=== PATIENT | female | born 1965 | race Caucasian/White ===

== ENCOUNTER → 2023-10-17 | Outpatient (CLI) | payer BC ==
[2023-10-17 18:16] LABS: Basophils # (A) 0.06 X 10*3/uL (0.00-0.10); Basophils % (A) 0.8 %; Eosinophils % (A) 5.2 %; HCT 42.6 % (37.2-46.3); HGB 13.9 g/dL (12.0-15.0); Lymphocytes # (A) 1.87 X 10*3/uL (0.90-5.00); Lymphocytes % (A) 24.2 %; MCH 28.1 pg (27.0-32.0); MCHC 32.6 g/dL (32.0-37.0); MCV 86.2 FL (80.0-97.0); Mean Platelet Volume 10.7 FL (9.5-12.2); Monocytes # (A) 0.61 X 10*3/uL (0.20-1.00); Monocytes % (A) 7.9 %; NRBC Per 100 WBC 0 X 10*3/uL (0.00-0.01); Neutrophils # (A) 4.75 X 10*3/uL (1.80-7.70); Neutrophils % (A) 61.3 %; Platelet Count 346 X 10*3/uL (140-440); RBC 4.94 X 10*6/uL (4.10-5.20); RDW 13.3 % (11.5-14.5); WBC 7.74 X 10*3/uL (4.50-10.00)
== END | disposition home or self-care (01) ==
LOC: LABPAT 15:16
PROVIDERS: ATTEND Obstetrics & Gynecology
DX: Z01.812 Encounter for preprocedural laboratory examination (principal)
CPT/HCPCS: 36415; 85025

== ENCOUNTER 2023-11-12 06:08 | Day surgery (SDC) | payer BC ==
[2023-11-07 15:44] VITALS: BMI 25.9
[~2023-11-12 06:08] MED LIST: Pre Op ABX Message 1 EACH MISC MISCELLANE ONE; SCOPOLAMINE 1 MG/72 HR PATCH TRANSDERM ONE; droPERidol 5 MG/2 ML VIAL IVP ONE
[2023-11-12] MEDS: LACTATED RINGERS 1,000 ML IV SCH (06:32)
[2023-11-12] MEDS: LIDOCAINE 1% (10MG/ML) FOR IV START INTRADERMA PRN (06:40)
[2023-11-12] MEDS: DEXAMETHASONE SOD PHOSPHATE 4 MG/ML 1 ML VIAL IV ONE (06:40)
[2023-11-12] MEDS: ONDANSETRON 4 MG/2 ML VIAL IVP ONE (06:40)
[2023-11-12] MEDS ORDERED: HYDROmorphone 0.5 MG/0.5 ML SYRINGE IVP PRN (07:00)
[2023-11-12] MEDS: LIDOCAINE 1%-EPI 1:100,000 50 ML VIAL SQ ONE (07:15)
[2023-11-12] MEDS ORDERED: KETOROLAC 15 MG/ML 1 ML VIAL ONE (07:41)
[2023-11-12] MEDS ORDERED: MIDAZOLAM 2 MG/2 ML VIAL ONE (07:41)
[2023-11-12] MEDS ORDERED: PROPOFOL 10 MG/ML 20 ML VIAL IV ONE (07:41)
[2023-11-12] MEDS ORDERED: fentaNYL (PF) 50 MCG/ML 2 ML AMP ONE (07:41)
[2023-11-12] MEDS ORDERED: LIDOCAINE 1% INJ 10MG/ML (20 ML MDV) ONE (07:41)
--- NOTE | 2023-11-12 08:18 | P.OP ---
Date of Procedure: 11/12/23 Preoperative Diagnosis: Menopausal bleeding Cervical stenosis Thickened endometrium by ultrasound Postoperative Diagnosis: Postmenopausal bleeding Cervical stenosis Atrophic endometrium Procedure(s) Performed: Diagnostic hysteroscopy with dilation and curettage Anesthesia: MAC Surgeon: Tona Graves Estimated Blood Loss (ml): 5 IV fluids (ml): 500 Urine output (ml): 50 Pathology: other (Endometrial curettings) Condition: stable Disposition: PACU Indications for Procedure: Postmenopausal bleeding and thickened endometrium with cervical stenosis preventing tissue biopsy in the office setting Operative Findings: Atrophic and pale intrauterine cavity with no gross intracavitary lesions or abnormalities. Bilateral tubal ostia easily visualized. Description of Procedure: After the patient was met in the preoperative holding area and all questions were answered, she was taken to the operating room where anesthetic was administered without incident. She was then positioned, prepped and draped in the dorsal lithotomy position. Bladder was drained for 50 mL of clear urine. Exam under anesthetic was performed and the uterus was noted to be retroverted, small and in the midline. Weighted speculum was placed in the vagina and the cervix was grasped anteriorly with single-toothed tenaculum. The smallest dilator was used to gently dilate the cervix past the internal os. This was accomplished and the cervix was then carefully and sequentially dilated to allow for passage of the diagnostic hysteroscope. The hysteroscope was introduced and the above findings were noted. Pictures were taken. The hysteroscope was removed and the cervix was further dilated to allow for passage of the smallest sharp banjo curet. This was introduced and the uterine cavity was curettaged with very scant tissue obtained. This is consistent with visualization of significant atrophy on hysteroscopy. The specimen was handed off as pathology specimen. Instruments were then removed from the cervix. The cervix was observed and no active bleeding was noted. Instruments removed from the vagina and the patient was awoken from anesthetic without incident. The patient was awoken from anesthetic and transported to the recovery room in good condition. All counts reported to me as correct by the operating room staff.
[2023-11-12 08:44] VITALS: RESP 16; TEMP 97.6
[2023-11-12 09:59] VITALS: BP 123/75; PULSE 70
== END 2023-11-12 09:43 | disposition home or self-care (01) ==
LOC: OR 06:08
PROVIDERS: ATTEND Obstetrics & Gynecology
DX: N92.4 Excessive bleeding in the premenopausal period (principal); M48.02 Spinal stenosis, cervical region; N85.8 Other specified noninflammatory disorders of uterus; Z98.891 History of uterine scar from previous surgery; E03.9 Hypothyroidism, unspecified; Z79.890 Hormone replacement therapy; Z79.899 Other long term (current) drug therapy
CPT/HCPCS: 58558; 88305; J2250; J1100; J2405; J2001; J3010; J1885; J2704